=== PATIENT | female | born 1970 | race Two or more races ===

== ENCOUNTER 2018-03-22 17:54 | Emergency (ER) | payer BC ==
[~2018-03-22] VITALS: Ht 162.6 cm; Wt 76.0 kg
[2018-03-22 17:59] VITALS: BP 143/87
[2018-03-22 18:36] LABS: BASOPHILS # (AUTO) 0.03 x10^3/uL (0-0.1); BASOPHILS % (AUTO) 0 % (0-1); EOSINOPHILS # (AUTO) 0.11 x10^3/uL (0-0.4); EOSINOPHILS % (AUTO) 1 % (1-7); LYMPHOCYTES % (AUTO) 24 % (22-44); MD NO; MEAN CORPUSCULAR HEMOGLOBIN 30.2 pg (27.0-34.8); MEAN CORPUSCULAR HGB CONC 33.6 g/dL (32.4-35.8); MEAN CORPUSCULAR VOLUME 89.7 fL (80-100); MEAN PLATELET VOLUME 6.5 fL (7.4-10.4); MONOCYTES % (AUTO) 8 % (2-9); NEUTROPHILS # (AUTO) 6.25 x10^3/uL (1.8-6.8); NEUTROPHILS % (AUTO) 67 % (42-75); PLATELET COUNT 340 x10^3/uL (130-400); RED BLOOD COUNT 4.15 x10^6/uL (3.82-5.3); RED CELL DISTRIBUTION WIDTH 14.4 % (9.6-15.2)
[2018-03-22 18:48] LABS: ALANINE AMINOTRANSFERASE 29 U/L (12-78); ALBUMIN 3.5 g/dL (3.4-5.0); ANION GAP 7 mmol/L (5-15); CALCIUM 8.7 mg/dL (8.5-10.1); CHLORIDE 106 mmol/L (98-107); CREATININE 0.96 mg/dL (0.55-1.02)
[2018-03-22 18:49] LABS: MICROSCOPIC AUTO
[2018-03-22 18:51] LABS: CULTURE INDICATED? YES
[2018-03-22 18:53] LABS: ALKALINE PHOSPHATASE 72 U/L (45-117); BILIRUBIN,TOTAL 0.2 mg/dL (0.2-1.0); TOTAL PROTEIN 7.3 g/dL (6.4-8.2)
== END 2018-03-22 19:23 | disposition home or self-care (01) ==
LOC: ED 19:17
DX: K59.00 Constipation, unspecified (principal); M54.9 Dorsalgia, unspecified
CPT/HCPCS: 36415; 76700; 80053; 81001; 83690; 84703; 85025; 87086; 93005; 99285